=== PATIENT | female | born 1985 | race Caucasian/White ===

== ENCOUNTER 2017-11-23 21:06 | Emergency (ER) | payer OTHER ==
--- NOTE | 2017-11-23 22:19 | RAD ---
HISTORY: Right calf pain and edema TECHNIQUE: Multiple transverse and longitudinal ultrasound images were obtained of the veins of the right lower extremity using grayscale, color Doppler, and spectral Doppler imaging with and without compression and with augmentation. FINDINGS: VEINS: The common femoral vein, deep femoral vein, femoral vein and popliteal vein are compressible throughout their course, with normal flow on color Doppler imaging and normal response to augmentation on spectral Doppler imaging. SOFT TISSUES: Grossly normal. No large popliteal fossa cyst was identified. IMPRESSION: No sonographic evidence of deep vein thrombosis.
--- NOTE | 2017-11-23 23:36 | ED ---
Lower Extremity - HPI Summary HPI Summary: 32-year-old female presents with right calf pain and swelling for the past day. States she got back from 8 hour trip in the car yesterday. She is also . She is an occasional smoker. She denies any recent surgeries. She denies any family history of blood clots. She denies any chest pain or shortness of breath. She denies any numbness or tingling. She did slip and fall on a log and banged her right leg yesterday. She has abrasion noted to right leg. She has not been cleaning the abrasion. She is able to place weight on the area. She does not believe anything is broken. - History of Current Complaint Chief Complaint: EDExtremityLower Stated Complaint: RT LEG PAIN Time Seen by Provider: 11/23/17 23:27 Pain Intensity: 1 - Allergies/Home Medications Allergies/Adverse Reactions: Allergies Allergy/AdvReac Type Severity Reaction Status Date / Time bupropion Allergy Hives Verified 11/23/17 23:36 Home Medications: Home Medications NK [No Home Medications Reported] 11/23/17 [History Confirmed 11/23/17] PMH/Surg Hx/FS Hx/Imm Hx Endocrine/Hematology History: Denies: Hx Anticoagulant Therapy Cardiovascular History: Denies: Hx Hypertension GI History: Reports: Hx Gastroesophageal Reflux Disease Infectious Disease History: No Infectious Disease History: Denies: Traveled Outside the [place] in Last 30 Days - Family History Known Family History: Positive: Other - benign tumor-breast Negative: Blood Disorder - Social History Alcohol Use: None Substance Use Type: Reports: Marijuana Smoking Status (MU): Light Every Day Tobacco Smoker Review of Systems Negative: Fever Negative: Chest Pain Negative: Shortness Of Breath Positive: Myalgia - right calf pain All Other Systems Reviewed And Are Negative: Yes Physical Exam Triage Information Reviewed: Yes Vital Signs On Initial Exam: Initial Vitals Temp Pulse Resp BP Pulse Ox 97.8 F 88 20 135/81 98 11/23/17 21:16 11/23/17 21:16 11/23/17 21:16 11/23/17 21:16 11/23/17 21:16 Vital Signs Reviewed: Yes Appearance: Positive: Well-Appearing Skin: Positive: Warm, Dry, Other - abrasion to right anterior wong Head/Face: Positive: Normal Head/Face Inspection Eyes: Positive: Normal, Conjunctiva Clear ENT: Positive: Pharynx normal Respiratory/Lung Sounds: Positive: Clear to Auscultation, Breath Sounds Present Cardiovascular: Positive: Normal, RRR Musculoskeletal: Positive: Strength/ROM Intact - right leg, Edema Right - leg, Other - tenderness right calf. Negative: Alfredo Sign Right Neurological: Positive: Normal Psychiatric: Positive: Normal Diagnostics - Vital Signs Vital Signs Temp Pulse Resp BP Pulse Ox 11/23/17 21:16 97.8 F 88 20 135/81 98 - Laboratory Lab Statement: Any lab studies that have been ordered have been reviewed, and results considered in the medical decision making process. - Ultrasound No standard instances Ultrasound Interpretation: No Acute Changes Ultrasound Interpretation Completed By: Radiologist Lower Extremity Course/Dx - Course Course Of Treatment: 32-year-old female presents with right calf pain and swelling for the past day. States she got back from 8 hour trip in the car yesterday. She is also . She is an occasional smoker. She denies any recent surgeries. She denies any family history of blood clots. She denies any chest pain or shortness of breath. She denies any numbness or tingling. She did slip and fall on a log and banged her right leg yesterday. She has abrasion noted to right leg. She has not been cleaning the abrasion. She is able to place weight on the area. She does not believe anything is broken. On exam has superficial abrasion noted to the right wong. Neurovascular intact. Edema noted to right leg. Ultrasound negative for DVT. Explained likely due to that has the edema. Told to use compression socks. told to follow up with ob about blood pressure as is elevated at this visit. Patient understands and agrees with plan. - Diagnoses Differential Diagnosis/HQI/PQRI: Positive: DVT, Fracture (Closed), Sprain, Strain Provider Diagnoses: Leg edema Discharge - Sign-Out/Discharge Documenting (check all that apply): Discharge/Admit/Transfer - Discharge Plan Condition: Good Disposition: HOME Patient Education Materials: Leg Edema (ED) Referrals: Bárbara Ac MD [Primary Care Provider] - Additional Instructions: wash abrasion with soap and water, place neosporin on area Use compression socks Ice Elevate Take Tylenol for pain every 6 hours Follow up with primary or ob within 5 days about blood pressure as is elevated at this visit Return to ED if develop any new or worsening symptoms - Billing Disposition and Condition Condition: GOOD Disposition: Home
[2017-11-23 23:51] VITALS: BP 135/75
== END 2017-11-23 23:50 | disposition home or self-care (01) ==
LOC: ED 21:06
DX: R60.0 Localized edema (principal); M79.661 Pain in right lower leg; K21.9 Gastro-esophageal reflux disease without esophagitis; F17.200 Nicotine dependence, unspecified, uncomplicated
CPT/HCPCS: 99282

== ENCOUNTER 2018-01-09 20:43 | Inpatient (IN) | payer OTHER ==
[2018-01-09] MEDS ORDERED: Dinoprostone* 10 MG VAG.SUPP VAGINAL ONE (21:50)
--- NOTE | 2018-01-09 23:47 | HP ---
General Information - Reason for Visit Here for cervical ripening and induction of labor @ 40+2 weeks gestation d/t GDM - General Information Maternal Age: 32 Grav: 1 Para: 0 SAB: 0 IEA: 0 Estimated Due Date: 01/06/18 Determined By: LMP Maternal Blood Type and Rh: O Negative - Results this Serology/RPR Result: Non-Reactive Rubella Result: Immune HBsAg Result: Negative HIV Result: Negative GBS Culture Result: Negative Past Medical History Delivery History: See Records Pertinent Past Medical History: Non-Contributory Past Medical History Comment: Depression/anxiety Migraine Joint problems, s/p eating disorder anorexia hx, last treated 2002 Back pain Pertinent Past Surgical History: See Records Past Surgical History Comment: Left femur fx repair, krystina in place Pertinent Family History: Non-Contributory Family History Comment: migraine breast mass, benign CVA lung CA - Antepartal Records Antepartal Records: Reviewed, Complicated by: - GDM Review of Systems Constitutional: Comfortable CV Complaint: No Respiratory: Shortness of Breath: No Gastrointestinal: No Nausea/Vomiting, Normal Bowel Movement Genitourinary: No Dysuria, No Bleeding, No Leaking Fluid Musculoskeletal: No Complaint Neurological: No Headache, No Visual Changes Movement: Normal Exam Allergies/Adverse Reactions: Allergies bupropion Allergy (Verified 11/23/17 23:36) Hives BP 141/89, repeat 135/86 T 98.7 HR 104 RR 20 O2 97% - Measurements Height: 5 ft 4 in Weight: 213 lb Weight in lbs: [phone] Body Mass Index (BMI): 36.6 Pre- Weight: 185 lb - TWG 28# Weight Gained This : 212.592 lbs and 0.002 ozs - Exam Breast: Breast Exam Deferred CVA: No CVA Tenderness Extremities: Edema - mild bilateral pedal Heart: Normal Rhythm/Heart Sounds HEENT: No Significant Findings Lungs: Clear Bilaterally Rectal: Rectal Exam Deferred Reflexes: - - DTR 1+, no clonus Thyroid: - - WNL @ entry to care - Abdominal Exam Abdomen Exam: Non-Tender Targeted Exam Findings Estimated Weight: EFW 8.5-9lb Cervical Exam: Fingertip Effacement: 70% Station: -3 Presenting Part: Vertex Membrane Status: Intact Bleeding/Discharge: None EFM Findings - External Monitor Findings Baseline Heart Rate: 125 External Monitor Findings: Accelerations Present, No Pattern of Variable or Late Decelerations, Variability Moderate Contractions: Irregular, Mild, < 45 Seconds Contraction Frequency: Q 6-8 Assessment/Plan - Assessment 32 yo 2ith IUP @ 40+2 weeks gestation for induction of labor due to GDM. IBOW. No evidence metabolic acidemia - Obstetrical Risk Factors Obstetrical Risk Factors: Obesity, Gestational Diabetes - Plan Plan: Induction, Cervical Ripening, Admit - Anticipate Vaginal Delivery Plan Comment: Admit to L&D. Insert cervidil for overnight ripening and monitor per protocol. Patient may consider pain medications with active labor. Fasting BG in am. Anticipate SVB - Date/Time of Admission Date of Admission: 01/09/18 Time of Admission: 23:40
--- NOTE | 2018-01-10 10:29 | PN ---
Progress Note - Progress Note Date of Service: 01/10/18 Note: S: Pt reports able to sleep overnight. Denies CABALLERO. No visual changes. Has some tightening and increased discomfort this AM but no regular, painful UCs. Denies LOF. No VB. Describes active FM. Ready for Cervidil to be removed but due to vaginal discomfort from Cervidil would like to delay VE for now. O: BP 139/89 HR 101 T 98.6 AM Fasting glucose 81 FHT: 120bpm. Moderate variability. +Accels. No decels. UCs: mild q 2-5.5 minutes VE: deferred at pt request. Cervidil removed A: IUP at 40-3/7 here for IOL GDM A1 No evidence of metabolic acidemia P: Cervidil removed as above. Pt agrees to VE and discussion of ongoing plan in 1 hour.
--- NOTE | 2018-01-10 12:54 | PN ---
Progress Note - Progress Note Date of Service: 01/10/18 Note: Quick Note At one hour pt was in the tub and declined VE. Finally consenting to be checked although reports that she feels that "things are changing and opening" VE: 1cm/70%/vtx -3. Impression: Modest benefit from Cervidil as previous exam was FT/70%/vtx -3 FHT: 120bpm. No decels UCs q 2-5 min, mild Lengthy review of options in at current exam including IV pitocin vs. Cornejo balloon vs. both. After review pt inquired about doing nothing. Discussed indications for induction: GDM, mildly elevated BP, term but acknowledged that if pt has a strong preference to discharge home we can review that option. Pt and FOB to discuss.
[2018-01-10 13:48] LABS: ABS Basophils 0 10^3/ul (0-0.2); ABS Eosinophils 0.1 10^3/ul (0-0.6); ABS Lymphocytes 1.5 10^3/ul (1.0-4.8); ABS Monocytes 0.5 10^3/ul (0-0.8); ABS Neutrophils 7.6 10^3/ul (1.5-7.7); ABS Nucleated RBC 0 10^3/ul; Eosinophil % 0.7 % (0-6); Hematocrit 34 % (35-47); Hemoglobin 11.7 g/dl (12.0-16.0); Lymphocyte % 15.9 % (25-47); Mean Corpuscular HGB Conc 34 g/dl (31-36); Mean Corpuscular Hemoglobin 30 pg (27-31); Mean Corpuscular Volume 87 fL (80-97); Mean Platelet Volume 8.8 um3 (7.4-10.4); Nucleated Red Blood Cells % 0; Platelet Count 248 10^3/ul (150-450); Red Blood Count 3.98 10^6/ul (4.00-5.40); Red Cell Distribution Width 13 % (10.5-15); White Blood Count 9.7 10^3/ul (3.5-10.8)
[2018-01-10 13:55] LABS: INR 0.83 (0.77-1.02)
[2018-01-10 14:03] LABS: EGFR Non-African American 101.4 (>60); Uric Acid 4.5 mg/dL (2.3-6.6)
--- NOTE | 2018-01-10 14:41 | PN ---
Progress Note - Progress Note Date of Service: 01/10/18 Note: S: After last note pt with BPs 157/103 and 161/103. Reviewed at bedside with pt and FOB who denies CABALLERO. No visual changes. No RUQ pain. Discussed that in presence of elevated BP no longer recommend stopping induction and discharging home as discussed previously. In presence of elevated BP recommend labs to rule out pre-eclampsia and continued induction. Pt and FOB disappointed but verbalize understanding and agreement. O: BPs as noted above 157/103, 161/103. HR 95 T 98.5 FHT: 120bpm by doptones. No decels. UCs mild, irregular VE deferred Lab work-up normal indicating gestational hypertension (see approriate forms in chart) A: IUP at 40-3/7 with GDM and gestational hypertension No evidence of metabolic acidemia P: Again reviewed options for continued IOL. At this time pt and FOB prefer trial of low dose IV pitocin. Orders input. BPs reviewed with Dr. Molina. He is aware of pt presence and condition and agrees that moving pt toward delivery appropriate. If repeat BP >160/>110 will consult MD again for medication mgmt.
[2018-01-10] MEDS: Oxytocin in LR* 20 UNITS/1,000 ML BAG IVPB SCH (14:47)
[2018-01-10 15:06] LABS: Urine Appearance Cloudy; Urine Blood 2+ (Negative); Urine Color Yellow; Urine Ketones Negative (Negative); Urine Protein Negative (Negative); Urine Red Blood Cell 1+(3-5/hpf) (Absent); Urine Specific Gravity 1.008 (1.010-1.030); Urine Urobilinogen Negative (Negative); Urine White Blood Cell 1+(6-10/hpf) (Absent)
--- NOTE | 2018-01-10 19:16 | PN ---
Progress Note - Progress Note Date of Service: 01/10/18 Note: S: Pt resting in bed watching tv with FOB. Stephen CABALLERO. No visual changes. No RUQ pain. Reports UCs feel more intense. Had some blood tinged mucus type discharge when up to bathroom O: BP 152/104 HR 112 RR 18 T 98.3 FHT: 115-120bpm. Moderate variability. +Accels. No decels UCs q 2-4 min. IV pit at 10mu/min VE: Pt declines at this time A: IUP at 40-3/7 in early active labor Gestational hypertension GDM - A1 No evidence of metabolic acidemia P: Continue IV pitocin. Close monitoring of maternal/ status.
[2018-01-10] MEDS: Nalbuphine* 10 MG/ML 1 ML VIAL IV PRN (19:47)
[2018-01-10] MEDS: Promethazine INJ(RESTRICTED)* 25 MG/ML 1 ML VIAL IV PRN (19:47)
--- NOTE | 2018-01-10 21:11 | PN ---
Progress Note - Progress Note Date of Service: 01/10/18 Note: S: Pt requested and received IV Nubain and Phenergan for sleep. O: BP 144/89 HR 89 RR 20 T 98.4 FHT 120bpm. Min-mod variability s/p Nubain/Phenergain. +Accels. No decels UCs q 2-7 min. IV pit at 14mu/min VE: Pt declined A: IUP at 40-3/7 in early labor No evidence of metabolic acidemia Gestational hypertension GDM A1 P: Enc rest. Continue IV pitocin. Close monitoring of maternal/ status
--- NOTE | 2018-01-11 00:54 | PN ---
Progress Note - Progress Note Date of Service: 01/11/18 Note: S: Pt sleeping well s/p Nubain and Phenergan. UC pattern increasingly irregular depsite IV pitocin O: BP 143/79 HR 79 T 98.3 FHT 115bpm. Moderate variability. +Accels. No decels UCs irregular. IV pit at 18mu/min VE: deferred A: IUP at 40-4/7 in early labor Gestational hypertension GDM - A1 No evidence of metabolic acidemia P: Discontinue IV pitocin and re-evaluate in the morning or sooner PRN
--- NOTE | 2018-01-11 06:42 | PN ---
Progress Note - Progress Note Date of Service: 01/11/18 Note: S: Pt slept well overnight. Reports that she doesn't feel an UCs at this time. O: BP 128/82 HR 97 T 98.3 FHT: 110-120bpm by doptones. No decels. UCs: irregular, mild VE: deferred A: IUP at 40-4/7 here for IOL for gestational hypertension and GDM A1 No evidence of metabolic acidemia P: Report to Tim Ordoñez CNM who will assume care at 0800 and will make a plan for induction with pt
--- NOTE | 2018-01-11 08:54 | PN ---
Progress Note - Progress Note Date of Service: 01/11/18 Note: Slept after medication. Contractions have stopped Options reviewed with pt/partner: restart pitocin vs recheck cervix and consider further ripening such as misoprostol, Cervidil or Cornejo balloon. Opts for pitocin
[2018-01-11] MEDS ORDERED: Oxytocin in LR* 20 UNITS/1,000 ML BAG IVPB SCH (09:00)
--- NOTE | 2018-01-11 19:34 | PN ---
Progress Note - Progress Note Date of Service: 01/11/18 Note: On pitocin all day. BP stable. FHTs baseline 150, mod variability, accels present. Mild contractions every 2-3 mins Cervix: 2-3 cm, 50%, vtx -2, soft, posterior Will continue pitocin 2-3 more hours, then stop, allow to rest.
[2018-01-11] MEDS: Promethazine INJ(RESTRICTED)* 25 MG/ML 1 ML VIAL IV PRN (20:33)
[2018-01-11] MEDS: Nalbuphine* 10 MG/ML 1 ML VIAL IV PRN (20:33)
--- NOTE | 2018-01-12 09:02 | PN ---
Progress Note - Progress Note Date of Service: 01/12/18 SOAP: Subjective: [Patient slept very well last night after discontinuing pitocin and nubain/ phenergan. Feeling well. Not feeling any contractions.] Objective: [BP 143/87 T 98.6 UCs irregular FHT 125, +accels, no decels, mod amanda Patient declines cervical exam at this time; last exam 2-3cm @ 1930 01/11 CMP, CBC, uric acid 01/10 WNL] Assessment: [IUP @ 40+5 weeks gestation for induction of labor GDM] Plan: [Discussed options of restarting pitocin vs trying to place santana bulb with pitocin. Patient would like to take a little time to think about it as vaginal exams have been very uncomfortable. Plan to ambulate and call when ready to proceed with induction.]
[2018-01-12] MEDS: Oxytocin in LR* 20 UNITS/1,000 ML BAG IVPB SCH (12:37)
--- NOTE | 2018-01-12 14:31 | PN ---
Progress Note - Progress Note Date of Service: 01/12/18 Note: S: Feeling well, contractions are mild. Has been walking, standing, using yoga ball. O: BP 148/94, afebrile FHT 125, +accels, no decels, mod amanda Pit @ 8 UCs difficult to monitor but possibly q 6-8 min A: IUP @ 40+5 weeks for IOL Latent labor P: Discussed AROM benefits and risks. Patient declines exam for now, would like to continue pitocin increase until stronger ctx then will consider exam and AROM. Reassess approx 2-4 hours.
--- NOTE | 2018-01-12 18:17 | PN ---
Progress Note - Progress Note Date of Service: 01/12/18 Note: S: Ctx feeling stronger, patient more uncomfortable. Has noticed bloody show O: BP @ 1745 160/93, repeat 149/98 afebrile UCs q 2-5 min FHT 130, Cat 1 Declined VE A: IUP @ 40+5 for IOL early labor P: Patient would like to eat dinner then have nubain/phenergan for pain relief. Will accept VE after pain medication. Considering AROM after comfortable or may desire epidural if advanced dilation then will consider AROM
[2018-01-12] MEDS: Nalbuphine* 10 MG/ML 1 ML VIAL IV PRN (19:48)
[2018-01-12] MEDS: Promethazine INJ(RESTRICTED)* 25 MG/ML 1 ML VIAL IV PRN (19:48)
--- NOTE | 2018-01-12 21:05 | PN ---
Progress Note - Progress Note Date of Service: 01/12/18 Note: S: Comfortable after nubain/phenergan. O: FHT 120, Cat 1 UCs Q 2-3 min VE 3cm/80/-2 Pit @ 16 A: IUP @40+5 weeks gestation for IOL GDM Early labor P: Discussed AROM at this time. Patient reluctant because she is concerned about infection risk if ruptured for a long time. Also concerned about labor getting stronger and "getting an epidural too soon". Reassured. Patient will await return of her to make a decision.
--- NOTE | 2018-01-12 23:16 | PN ---
Progress Note - Progress Note Date of Service: 01/12/18 Note: S: Patient more uncomfortable now that nubain wearing off, contractions getting stronger. Also has low back pain. O: Agreed to AROM, done 2214, clear fluid VE /-2 BP 144/110 while pressing arm, repeat 157/91, 146/82 FHT 120, Cat 1 Pit at 16 UCs q 2-4 Repeat pre-e labs ordered A: early labor P: Heat pack for low back. Patient desires nitrous, questions answered and ordered. Will likely want epidural.
[2018-01-12 23:37] LABS: ABS Basophils 0 10^3/ul (0-0.2); ABS Eosinophils 0.1 10^3/ul (0-0.6); ABS Lymphocytes 1.9 10^3/ul (1.0-4.8); ABS Monocytes 0.5 10^3/ul (0-0.8); ABS Nucleated RBC 0 10^3/ul; Eosinophil % 1.1 % (0-6); Hematocrit 32 % (35-47); Lymphocyte % 19.7 % (25-47); Mean Corpuscular HGB Conc 34 g/dl (31-36); Mean Corpuscular Hemoglobin 30 pg (27-31); Mean Corpuscular Volume 88 fL (80-97); Mean Platelet Volume 8.5 um3 (7.4-10.4); Nucleated Red Blood Cells % 0; Platelet Count 227 10^3/ul (150-450); Red Blood Count 3.65 10^6/ul (4.00-5.40); Red Cell Distribution Width 13 % (10.5-15); White Blood Count 9.6 10^3/ul (3.5-10.8)
[2018-01-13 00:02] LABS: Uric Acid 4.2 mg/dL (2.3-6.6)
[2018-01-13] MEDS: Nalbuphine* 10 MG/ML 1 ML VIAL IV PRN (02:01)
[2018-01-13] MEDS: Promethazine INJ(RESTRICTED)* 25 MG/ML 1 ML VIAL IV PRN (02:01)
[2018-01-13] MEDS ORDERED: RHO D Immune Globulin (HUMAN)* 300 MCG = 1,500 I.U. INJ IM ONE (04:55)
[2018-01-13] MEDS ORDERED: Glycerin ADULT SUPP PR PRN (04:55)
[2018-01-13] MEDS ORDERED: Misoprostol TAB* 200 MCG PR ONE (04:55)
[2018-01-13] MEDS ORDERED: Oxytocin in LR* 20 UNITS/1,000 ML BAG IVPB SCH (05:00)
[2018-01-13] MEDS ORDERED: Hepatitis B Vac PF(ENGERIX-B)* 10 MCG/0.5 ML ML SYRINGE - PEDIATRIC ONE (05:21)
[2018-01-13] MEDS ORDERED: Erythromycin OPTH OINT* APPLIC OINT ONE (05:21)
[2018-01-13] MEDS ORDERED: Phytonadione NEONATE INJ* 1 MG/0.5 ML AMP ONE (05:21)
--- NOTE | 2018-01-13 05:22 | PROCNOTE ---
[facility] OB: Delivery Note - Nursery Level of Nursery: Regular/Bedside - Perineum Perineal Injury: Perineal Laceration, 1st Degree Perineal Injury Comment: 1 stitch perineal, R labial rep. R&L periurethral abrasions not repaired Perineal Repair: By Delivering Practioner - Events Delivery Events of Note: Pitocin During Labor, Post- Bleeding - Meds Given - Risk for Falls Delivered OB Patient- Risk for Falls: Heavy Bleeding Fall Risk: Patient is at High Risk for Falls - Additional Delivery Notes Additional Delivery Notes: Patient admitted for IOL for term with GDM. Cervidil then pitocin did not lead to active labor for several days. SROM with pitocin finally lead to active labor with total LOL 7'25". Patient pushed for 1hr 11 min in various positions. Baby born @ 0406, OA to ANGELA in a side-lying position. Slow controlled delivery of head with shoulders following smoothly with maternal efforts. Baby to maternal abdomen with spontaneous respirations and HR >110. Placenta delivered with gentle cord traction @ 0415. Trailing membranes teased out and appear intact. Placenta with 3VC and no visible abnormalities. Brisk bleeding noted initially. Pitocin infusing and Cytotec 800mcg [place] administered with good resolution of bleeding. Fundus firm to massage. EBL 450ml. As above, 1st degree perineal abrasion repaired with 1 stitch. Right labial laceration repaired with 4-0 Rapide. Right and left periurethral/labial abrasions hemostatic and not repaired. Baby at breast to initiate . Mother and baby stable.
[2018-01-13] MEDS: Docusate CAP* 100 MG PO SCH ×3 (09:02→20:33)
[2018-01-13] MEDS: Witch Hazel PAD* JAR TOPICAL PRN (09:02)
[2018-01-13] MEDS: Ibuprofen TAB* 600 MG PO PRN ×2 (12:12→18:08)
[2018-01-13] MEDS: Dibucaine 1% 28.35 GM TUBE PR PRN (12:55)
[2018-01-14] MEDS: Ibuprofen TAB* 600 MG PO PRN ×4 (00:18→20:53)
[2018-01-14 07:00] LABS: ABS Basophils 0 10^3/ul (0-0.2); ABS Eosinophils 0.2 10^3/ul (0-0.6); ABS Lymphocytes 2.1 10^3/ul (1.0-4.8); ABS Monocytes 0.7 10^3/ul (0-0.8); ABS Neutrophils 6.1 10^3/ul (1.5-7.7); ABS Nucleated RBC 0 10^3/ul; Eosinophil % 2.2 % (0-6); Hematocrit 24 % (35-47); Hemoglobin 8.4 g/dl (12.0-16.0); Lymphocyte % 22.6 % (25-47); Mean Corpuscular HGB Conc 35 g/dl (31-36); Mean Corpuscular Hemoglobin 31 pg (27-31); Mean Corpuscular Volume 87 fL (80-97); Mean Platelet Volume 8.1 um3 (7.4-10.4); Nucleated Red Blood Cells % 0; Platelet Count 185 10^3/ul (150-450); Red Blood Count 2.73 10^6/ul (4.00-5.40); Red Cell Distribution Width 13 % (10.5-15); White Blood Count 9.1 10^3/ul (3.5-10.8)
[2018-01-14] MEDS: Ferrous Gluconate TAB* 324 MG TAB PO SCH ×2 (09:06→20:52)
[2018-01-14] MEDS: Docusate CAP* 100 MG PO SCH ×3 (09:06→20:53)
[2018-01-14] MEDS: Acetaminophen TAB* 325 MG PO PRN ×2 (09:31→13:43)
[2018-01-14] MEDS: Dibucaine 1% 28.35 GM TUBE PR PRN (13:43)
[2018-01-14] MEDS: Witch Hazel PAD* JAR TOPICAL PRN (13:43)
[2018-01-15] MEDS: Acetaminophen TAB* 325 MG PO PRN ×2 (00:20→13:39)
[2018-01-15] MEDS: Ibuprofen TAB* 600 MG PO PRN ×2 (04:05→11:05)
[2018-01-15] MEDS: Ferrous Gluconate TAB* 324 MG TAB PO SCH (08:18)
[2018-01-15] MEDS: Docusate CAP* 100 MG PO SCH ×2 (08:18→13:39)
[2018-01-15] MEDS: Witch Hazel PAD* JAR TOPICAL PRN (11:37)
[2018-01-15 11:53] VITALS: BP 142/89
== END 2018-01-15 16:40 | disposition home or self-care (01) | DRG 560 ==
LOC: EEVIPCON 20:43 → MCHOBOUT 20:43 → MCHOB 23:40
PROVIDERS: ADMIT Midwife; ATTEND Midwife
PROC: 10E0XZZ Delivery of Products of Conception, External Approach (ICD-10-PCS; principal; 2018-01-13)
PROC: 10907ZC Drainage of Amniotic Fluid, Therapeutic from Products of Conception, Via Natural or Artificial Opening (ICD-10-PCS; 2018-01-13)
PROC: 3E033VJ Introduction of Other Hormone into Peripheral Vein, Percutaneous Approach (ICD-10-PCS; 2018-01-13)
PROC: 0HQ9XZZ Repair Perineum Skin, External Approach (ICD-10-PCS; 2018-01-13)
DX: O24.429 Gestational diabetes mellitus in childbirth, unspecified control (principal); O48.0 Post-term pregnancy; O99.344 Other mental disorders complicating childbirth; F41.8 Other specified anxiety disorders; O99.214 Obesity complicating childbirth; E66.9 Obesity, unspecified; Z68.36 Body mass index [BMI] 36.0-36.9, adult; O70.0 First degree perineal laceration during delivery; O90.81 Anemia of the puerperium; D64.9 Anemia, unspecified; Z3A.40 40 weeks gestation of pregnancy; Z37.0 Single live birth
CPT/HCPCS: 36415; 59200; 80053; 81003; 81015; 84550; 85025; 85461; 85610; 85730; 86850; 86870; 86880; 86900; 86901; 87086; 90744; A9270-GY; J2300; J2550; J2790; J3430

== ENCOUNTER 2018-07-15 00:23 | Emergency (ER) | payer MEDICAID, OTHER ==
[2018-07-15] MEDS ORDERED: hydrOXYzine HCL TAB* 50 MG PO ONE (01:27)
--- NOTE | 2018-07-15 01:32 | ED ---
Palpitations / Dysrhythmia - HPI Summary HPI Summary: Patient complains of waking up the past 3 nights with accelerated heart rate, nausea, lightheadedness and panic. No active symptoms here in ED. Episodes last about an hour, resolved with patient walks around or drink some water. Patient states history of same 2 years ago when she was stressed out. Denies any stress currently that she is aware of. Denies any decrease in activity or endurance levels. Denies fever, cough, sore throat, CP, N/V/D, abdominal pain, change in urine, change in BM. Patient states she was shoveling a yesterday for her horses without any CP SOB, states states she actually feels better when she is active. Medical history is none. Denies EtOH, recreational drug use. - History of Current Complaint Chief Complaint: EDDysrhythmPalp Time Seen by Provider: 07/15/18 01:13 Hx Obtained From: Patient Onset/Duration: Sudden Onset Timing: Intermittent Episodes Lasting: Severity Initially: Moderate Severity Currently: None Character: Fast Aggravating: Nothing Alleviating: Exertion Associated Signs & Symptoms: Lightheadedness, Nausea - Allergy/Home Medications Allergies/Adverse Reactions: Allergies Allergy/AdvReac Type Severity Reaction Status Date / Time bupropion Allergy Hives Verified 07/15/18 00:26 Home Medications: Home Medications Calcium Carbonate CHEW TAB* [Tums*] 500 mg PO TID PRN 07/15/18 [History Confirmed 07/15/18] PMH/Surg Hx/FS Hx/Imm Hx Endocrine/Hematology History: Denies: Hx Anticoagulant Therapy, Hx Thyroid Disease Cardiovascular History: Denies: Hx Hypertension Respiratory History: Denies: Hx Asthma GI History: Reports: Hx Gastroesophageal Reflux Disease History: Denies: Hx Kidney Infection, Other Problems/Disorders Psychiatric History: Reports: Hx Anxiety, Hx Depression, Other Psychiatric Issues/Disorders - Anorexia Infectious Disease History: No Infectious Disease History: Denies: Traveled Outside the [place] in Last 30 Days - Family History Known Family History: Positive: Other - benign tumor-breast Negative: Blood Disorder - Social History Alcohol Use: None Substance Use Type: Reports: Marijuana Substance Use Comment - Amount & Last Used: occasional use Smoking Status (MU): Light Every Day Tobacco Smoker Type: Cigarettes Have You Smoked in the Last Year: No Review of Systems Constitutional: Negative Eyes: Negative ENT: Negative Positive: Palpitations Respiratory: Negative Positive: Nausea Genitourinary: Negative Musculoskeletal: Negative Skin: Negative Neurological: Negative Psychological: Normal All Other Systems Reviewed And Are Negative: Yes Physical Exam - Summary Physical Exam Summary: Physical exam unremarkable. RRR. Lung sounds clear to auscultation bilaterally. Triage Information Reviewed: Yes Vital Signs On Initial Exam: Initial Vitals Temp Pulse Resp BP Pulse Ox 99.9 F 100 16 131/82 96 07/15/18 00:23 07/15/18 00:23 07/15/18 00:23 07/15/18 00:23 07/15/18 00:23 Vital Signs Reviewed: Yes Appearance: Positive: Well-Appearing Skin: Positive: Warm Head/Face: Positive: Normal Head/Face Inspection Eyes: Positive: Normal Neck: Positive: Supple Respiratory/Lung Sounds: Positive: Clear to Auscultation Cardiovascular: Positive: Normal Abdomen Description: Positive: Nontender Musculoskeletal: Positive: Normal Neurological: Positive: Normal Psychiatric: Positive: Normal AVPU Assessment: Alert - [place] Coma Scale Best Eye Response: 4 - Spontaneous Best Motor Response: 6 - Obeys Commands Best Verbal Response: 5 - Oriented Coma Scale Total: 15 Diagnostics - Vital Signs Vital Signs Temp Pulse Resp BP Pulse Ox 07/15/18 00:23 99.9 F 100 16 131/82 96 - Laboratory Lab Statement: Any lab studies that have been ordered have been reviewed, and results considered in the medical decision making process. Course/Dx - Course Course Of Treatment: Patient complains of waking up the past 3 nights with accelerated heart rate, nausea, lightheadedness and panic. No active symptoms here in ED. Episodes last about an hour, resolved with patient walks around or drink some water. Patient states history of same 2 years ago when she was stressed out. Denies any stress currently that she is aware of. Denies any decrease in activity or endurance levels. Denies fever, cough, sore throat, CP , N/V/D, abdominal pain, change in urine, change in BM. Patient states she was shoveling a yesterday for her horses without any CP SOB, states states she actually feels better when she is active. Medical history is none. Denies EtOH , recreational drug use. Physical exam:Physical exam unremarkable. RRR. Lung sounds clear to auscultation bilaterally. Vital signs within normal limits. EKG unremarkable and unchanged from prior EKG 2016. Symptoms are consistent with anxiety. Rx for Vistaril. - Diagnoses Provider Diagnoses: Anxiety Discharge - Sign-Out/Discharge Documenting (check all that apply): Patient Departure Patient Received Moderate/Deep Sedation with Procedure: No - Discharge Plan Condition: Stable Disposition: HOME Prescriptions: hydrOXYzine HCL TAB* [Atarax TAB 50 MG *] 50 mg PO BEDTIME PRN 20 Days #20 tab PRN Reason: Anxiety Patient Education Materials: Anxiety (ED) Referrals: Bárbara Ac MD [Primary Care Provider] - Additional Instructions: Take hydroxyzine at night. Follow-up with primary care. Return to the ED for any new or worsening symptoms - Billing Disposition and Condition Condition: STABLE Disposition: Home
[2018-07-15 01:51] VITALS: BP 127/83
== END 2018-07-15 01:55 | disposition home or self-care (01) ==
LOC: ED 00:23
DX: F41.9 Anxiety disorder, unspecified (principal); R42 Dizziness and giddiness; R11.0 Nausea; F17.210 Nicotine dependence, cigarettes, uncomplicated; R00.2 Palpitations; K21.9 Gastro-esophageal reflux disease without esophagitis
CPT/HCPCS: 93005; 99282; A9270-GY

== ENCOUNTER 2019-02-12 22:34 | Emergency (ER) | payer OTHER ==
--- NOTE | 2019-02-13 01:05 | ED ---
Throat Pain/Nasal Congestion - HPI Summary HPI Summary: 33-year-old female presents with sore throat cough and sinus congestion for the past couple days. She is concerned that she has strep. She has no medical conditions. She is nonsmoker. She denies any chest pain or shortness of breath currently. No abdominal pain. No nausea or vomiting. No fever. Hasn' t taking anything for her symptoms. - History of Current Complaint Chief Complaint: EDUpperRespComplaint Time Seen by Provider: 02/13/19 00:35 - Allergies/Home Medications Allergies/Adverse Reactions: Allergies Allergy/AdvReac Type Severity Reaction Status Date / Time bupropion Allergy Hives Verified 02/13/19 00:26 PMH/Surg Hx/FS Hx/Imm Hx Endocrine/Hematology History: Denies: Hx Anticoagulant Therapy, Hx Thyroid Disease Cardiovascular History: Denies: Hx Hypertension Respiratory History: Denies: Hx Asthma GI History: Reports: Hx Gastroesophageal Reflux Disease History: Denies: Hx Kidney Infection, Other Problems/Disorders Psychiatric History: Reports: Hx Anxiety, Hx Depression, Other Psychiatric Issues/Disorders - Anorexia Infectious Disease History: No Infectious Disease History: Denies: Traveled Outside the [place] in Last 30 Days - Family History Known Family History: Positive: Other - benign tumor-breast Negative: Blood Disorder - Social History Alcohol Use: Occasionally Substance Use Type: Reports: Marijuana Substance Use Comment - Amount & Last Used: occasional use Smoking Status (MU): Former Smoker Type: Cigarettes Have You Smoked in the Last Year: No Review of Systems Negative: Fever Positive: Sore Throat Negative: Chest Pain Positive: Cough. Negative: Shortness Of Breath All Other Systems Reviewed And Are Negative: Yes Physical Exam Triage Information Reviewed: Yes Vital Signs On Initial Exam: Initial Vitals Temp Pulse Resp BP Pulse Ox 98.1 F 80 18 135/88 98 02/12/19 22:36 02/12/19 22:36 02/12/19 22:36 02/12/19 22:36 02/12/19 22:36 Vital Signs Reviewed: Yes Appearance: Positive: Well-Appearing Skin: Positive: Warm, Dry Head/Face: Positive: Normal Head/Face Inspection Eyes: Positive: Normal, EOMI, TONI, Conjunctiva Clear ENT: Positive: Pharyngeal erythema, TMs normal, Uvula midline, Other - soft palate symmetric. Negative: Tonsillar swelling, Tonsillar exudate, Trismus, Muffled voice Respiratory/Lung Sounds: Positive: Clear to Auscultation, Breath Sounds Present Cardiovascular: Positive: Normal, RRR Abdomen Description: Positive: Nontender, Soft Bowel Sounds: Positive: Present Musculoskeletal: Positive: Normal Neurological: Positive: Normal Psychiatric: Positive: Normal Diagnostics - Vital Signs Vital Signs Temp Pulse Resp BP Pulse Ox 02/12/19 22:36 98.1 F 80 18 135/88 98 - Laboratory Lab Statement: Any lab studies that have been ordered have been reviewed, and results considered in the medical decision making process. - Radiology chest Radiology Interpretation Completed By: ED Physician Summary of Radiographic Findings: no pneumonia EENT Course/Dx - Course Course Of Treatment: 33-year-old female presents with sore throat cough and sinus congestion for the past couple days. She is concerned that she has strep. She has no medical conditions. She is nonsmoker. She denies any chest pain or shortness of breath currently. No abdominal pain. No nausea or vomiting. No fever. Hasn't taking anything for her symptoms. On exam lungs clear auscultation. Pharynx erythematous. Sinus congestion noted. Strep negative. Chest x-ray normal. Gave inhaler for supportive treatment. Told to follow up primary. Patient understands agrees plan. - Differential Diagnoses Differential Diagnoses: Sinusitis, URI/Bronchitis, Other - pneumonia - Diagnoses Provider Diagnoses: Upper respiratory infection Discharge ED - Sign-Out/Discharge Documenting (check all that apply): Patient Departure Patient Received Moderate/Deep Sedation with Procedure: No - Discharge Plan Condition: Good Disposition: HOME Patient Education Materials: Upper Respiratory Infection (ED) Referrals: Bárbara Ac MD [Primary Care Provider] - Additional Instructions: Use inhaler one puff every 4 hours for cough as needed Use saline in the nose Take Tylenol and ibuprofen for pain/fever every 6 hours follow up with primary Return to ED if develop any new or worsening symptoms - Billing Disposition and Condition Condition: GOOD Disposition: Home
[2019-02-13 01:10] LABS: Rapid Strep Molecular Negative (Negative)
[2019-02-13] MEDS ORDERED: A lbuterol Hfa (PREPAK) 1 MDI - ED TAKE HOME DISPENSING ONLY INHH ONE (01:32)
[2019-02-13 01:51] VITALS: BP 132/84
== END 2019-02-13 01:48 | disposition home or self-care (01) ==
LOC: ED 22:34
DX: J06.9 Acute upper respiratory infection, unspecified (principal); K21.9 Gastro-esophageal reflux disease without esophagitis; Z87.891 Personal history of nicotine dependence; Z88.8 Allergy status to other drugs, medicaments and biological substances
CPT/HCPCS: 71046; 87651; 99282; A9270-GY

== ENCOUNTER 2020-10-26 14:21 | Inpatient (IN) ==
[2020-10-26] MEDS ORDERED: Sodium Citrate/Citric Acid LIQ 15 ML UDC PO ONE (14:29)
[2020-10-26] MEDS ORDERED: ceFOXitin 2 GM IVPREMIX 2 GM/50 ML BAG IVPB ONE (14:29)
[2020-10-26] MEDS ORDERED: Buffered Lidocaine 1% SYRIN 1 ml INTRADERM ONE (14:29)
[2020-10-26] MEDS ORDERED: Lactated Ringers 1000 ml BAG 1,000 ML IV ONE (14:29)
[2020-10-26] MEDS ORDERED: Magnesium Sulf 4 GM/100 ML IV 4,000 MG/100 ML BAG IVPB ONE (14:29)
[2020-10-26] MEDS ORDERED: Magnesium Sulfate OB PREMIX 40 GM/1,000 ML BAG IVPB SCH (15:00)
[2020-10-26] MEDS ORDERED: Lactated Ringers 1000 ml BAG 1,000 ML IV SCH ×2 (15:00→20:00)
[2020-10-26 15:05] LABS: Hematocrit 26 % (35-47); Hemoglobin 8.7 g/dL (12.0-16.0); Mean Corpuscular HGB Conc 33 g/dL (31-36); Mean Corpuscular Hemoglobin 28 pg (27-31); Mean Corpuscular Volume 85 fL (80-97); Mean Platelet Volume 8.9 fL (7.4-10.4); Platelet Count 217 10^3/uL (150-450); Red Blood Count 3.12 10^6 /uL (3.70-4.87); Red Cell Distribution Width 15 % (10-15); White Blood Count 11.1 10^3/uL (3.5-10.8)
[2020-10-26 15:06] LABS: Platelet Count 228 10^3/ul (150-450)
[2020-10-26 15:23] LABS: Albumin 3.2 g/dL (3.2-5.2); Albumin/Globulin Ratio 1.3 (1-3); Calcium 9.4 mg/dL (8.6-10.3); EGFR African American 110.9 (>60); EGFR Non-African American 91.7 (>60); Globulin 2.5 g/dL (2-4); Potassium 3.9 mmol/L (3.5-5.0); Total Bilirubin 0.4 mg/dL (0.2-1.0); Total Protein 5.7 g/dL (6.4-8.9)
[2020-10-26 15:29] LABS: Urine Benzodiazepine Screen None Detected (None Detect); Urine Cannabinoids Screen None Detected (None Detect); Urine Opiates Screen None Detected (None Detect)
[2020-10-26 15:34] LABS: ABS Lymphocytes 1.6 10^3/ul (1.0-4.8); ABS Monocytes 0.9 10^3/ul (0-0.8); ABS Neutrophils 8.6 10^3/ul (1.5-7.7); Eosinophil % 0.2 %; Lymphocyte % 14.1 %
[2020-10-26 15:39] LABS: Schistocytes ABSENT
[2020-10-26 16:25] LABS: Activated Partial Thrombo Time 20.8 seconds (26.0-38.0); INR 0.89 (0.82-1.09)
[2020-10-26] MEDS ORDERED: Morphine PF AMP (0.5MG/ML) 5 MG/10 ML AMP ONE (17:14)
[2020-10-26] MEDS ORDERED: Ondansetron 4 mg VIAL 2 MG/ML 2 ml VIAL ONE ×2 (17:14→19:20)
[2020-10-26] MEDS ORDERED: Oxytocin 10 UNITS/ML 1 ML VIAL ONE (17:14)
[2020-10-26] MEDS ORDERED: Phenylephrine 40 mcg/mL 10mL (400mcg) SYRINGE ONE (17:14)
[2020-10-26] MEDS ORDERED: Carboprost Tromethamine 250 mcg 1 ml VIAL IM ONE (17:40)
[2020-10-26] MEDS ORDERED: diPHENhydraMINE IV 50 MG/ML 1 ml VIAL (BENADRYL) IV PRN (18:48)
[2020-10-26] MEDS ORDERED: Naloxone 0.4 mg VIAL 0.4 mg/ml 1 ml VIAL IV PRN (18:48)
[2020-10-26] MEDS ORDERED: Ondansetron 4 mg VIAL 2 MG/ML 2 ml VIAL IV PRN (18:48)
[2020-10-26] MEDS ORDERED: Acetaminophen IV 1 GM/100ML 1,000 MG/100 ML VIAL IVPB PRN (18:49)
[2020-10-26] MEDS ORDERED: Glycerin ADULT 2.4 gm SUPP PR PRN (19:19)
[2020-10-26] MEDS ORDERED: Dibucaine 1% OINT 28.35 GM TUBE PR PRN (19:19)
[2020-10-26] MEDS ORDERED: RHO D Immune Globulin (HUMAN) 300 MCG = 1,500 I.U. INJ IM PRN (19:19)
[2020-10-26] MEDS ORDERED: Witch Hazel PAD JAR TOPICAL PRN (19:19)
[2020-10-26] MEDS ORDERED: Oxytocin in LR 20 UNITS/1,000 ML BAG IVPB SCH (20:00)
[2020-10-26 21:25] LABS: Hematocrit 28 % (35-47); Hemoglobin 9.3 g/dL (12.0-16.0); Mean Corpuscular HGB Conc 33 g/dL (31-36); Mean Corpuscular Hemoglobin 28 pg (27-31); Mean Corpuscular Volume 86 fL (80-97); Mean Platelet Volume 8.9 fL (7.4-10.4); Platelet Count 228 10^3/uL (150-450); Red Blood Count 3.26 10^6 /uL (3.70-4.87); Red Cell Distribution Width 15 % (10-15); White Blood Count 10.5 10^3/uL (3.5-10.8)
[2020-10-26 22:19] LABS: Urine Appearance Cloudy; Urine Bilirubin Negative (Negative); Urine Blood Negative (Negative); Urine Color Yellow; Urine Glucose Negative (Negative); Urine Ketones Negative (Negative); Urine Nitrite Negative (Negative); Urine Protein 1+(30 mg/dL) (Negative); Urine Urobilinogen Negative (Negative)
[2020-10-26 22:25] LABS: Urine Bacteria Absent (Absent); Urine Red Blood Cell Absent (Absent); Urine White Blood Cell Absent (Absent)
[2020-10-27] MEDS ORDERED: hydrALAZINE 20 mg/ml 1 ML Vial IV IV SLOW PU PRN (04:14)
[2020-10-27 04:21] LABS: ABS Lymphocytes 2.6 10^3/ul (1.0-4.8); ABS Monocytes 1.5 10^3/ul (0-0.8); ABS Neutrophils 13.9 10^3/ul (1.5-7.7); Eosinophil % 0.2 %; Hematocrit 30 % (35-47); Hemoglobin 10.1 g/dL (12.0-16.0); Lymphocyte % 14.6 %; Mean Corpuscular HGB Conc 34 g/dL (31-36); Mean Corpuscular Hemoglobin 29 pg (27-31); Mean Corpuscular Volume 85 fL (80-97); Mean Platelet Volume 8.9 fL (7.4-10.4); Nucleated Red Blood Cells % 0.1; Platelet Count 253 10^3/uL (150-450); Red Blood Count 3.56 10^6 /uL (3.70-4.87); Red Cell Distribution Width 16 % (10-15); White Blood Count 18.2 10^3/uL (3.5-10.8)
[2020-10-27 05:15] LABS: Albumin 2.9 g/dL (3.2-5.2); Albumin/Globulin Ratio 1.2 (1-3); Calcium 8.8 mg/dL (8.6-10.3); EGFR African American 109.2 (>60); EGFR Non-African American 90.2 (>60); Globulin 2.4 g/dL (2-4); Potassium 4.3 mmol/L (3.5-5.0); Total Bilirubin 0.5 mg/dL (0.2-1.0); Total Protein 5.3 g/dL (6.4-8.9)
[2020-10-27] MEDS ORDERED: Albuterol 2.5mg/3 ml (0.083%) NEB.SOLN INH PRN (05:53)
[2020-10-27 06:55] LABS: Troponin I 0.02 ng/mL (<0.03)
[2020-10-27 10:58] LABS: ABS Lymphocytes 1.5 10^3/ul (1.0-4.8); ABS Monocytes 0.9 10^3/ul (0-0.8); ABS Neutrophils 9.7 10^3/ul (1.5-7.7); Eosinophil % 0.3 %; Hematocrit 26 % (35-47); Hemoglobin 8.5 g/dL (12.0-16.0); Lymphocyte % 12.3 %; Mean Corpuscular HGB Conc 33 g/dL (31-36); Mean Corpuscular Hemoglobin 28 pg (27-31); Mean Corpuscular Volume 85 fL (80-97); Mean Platelet Volume 8.9 fL (7.4-10.4); Platelet Count 220 10^3/uL (150-450); Red Cell Distribution Width 16 % (10-15); White Blood Count 12.2 10^3/uL (3.5-10.8)
[2020-10-27 11:25] LABS: Calcium 8.8 mg/dL (8.6-10.3); EGFR African American 110.9 (>60); EGFR Non-African American 91.7 (>60); Potassium 4.1 mmol/L (3.5-5.0)
[2020-10-27] MEDS ORDERED: Furosemide 20 mg/2 ml IV VIAL IV ONE (11:40)
[2020-10-28 07:33] LABS: ABS Eosinophils 0.1 10^3/ul (0-0.6); ABS Lymphocytes 1.8 10^3/ul (1.0-4.8); ABS Monocytes 0.8 10^3/ul (0-0.8); Eosinophil % 1.1 %; Hematocrit 27 % (35-47); Hemoglobin 8.8 g/dL (12.0-16.0); Mean Corpuscular HGB Conc 33 g/dL (31-36); Mean Corpuscular Hemoglobin 28 pg (27-31); Mean Corpuscular Volume 85 fL (80-97); Mean Platelet Volume 8.5 fL (7.4-10.4); Nucleated Red Blood Cells % 0.1; Platelet Count 222 10^3/uL (150-450); Red Blood Count 3.11 10^6 /uL (3.70-4.87); Red Cell Distribution Width 16 % (10-15); White Blood Count 10.8 10^3/uL (3.5-10.8)
[2020-10-28 07:49] LABS: Albumin 2.9 g/dL (3.2-5.2); Albumin/Globulin Ratio 1.2 (1-3); Calcium 9.6 mg/dL (8.6-10.3); EGFR African American 107.5 (>60); EGFR Non-African American 88.8 (>60); Globulin 2.4 g/dL (2-4); Potassium 4.1 mmol/L (3.5-5.0); Total Bilirubin 0.3 mg/dL (0.2-1.0); Total Protein 5.3 g/dL (6.4-8.9)
[2020-10-28] MEDS ORDERED: Dibucaine 1% OINT 28.35 GM TUBE PR PRN (13:11)
[2020-10-28] MEDS ORDERED: Hemorrhoidal OINT 1 TUBE PR PRN (13:11)
[2020-10-29] MEDS ORDERED: Polyethylene Glycol 3350 17 GM PACKET PO SCH (21:00)
[2020-10-30 13:07] VITALS: BP 147/87
== END 2020-10-30 16:53 | disposition home or self-care (01) ==
LOC: MCHOBOUT 14:21 → MCHOB 14:33 → ICU 10-27 05:37 → MCHOB 10-27 16:35
PROVIDERS: ADMIT Obstetrics & Gynecology; ATTEND Obstetrics & Gynecology